=== PATIENT | male | born 1955 | race Caucasian/White ===

== ENCOUNTER → 2016-09-25 | Outpatient (CLI) | payer BC ==
[~2016-09-25] MED LIST: ALDACTONE PO; COREG3.125 MG PO; LASIX20 MG PO; MULTI-VITAMIN1 EAC1 PO; NO MEDICATIONS; POTASSIUM CHLO10 ME1 PO; PREDNISONE PO
== END | disposition home or self-care (01) ==
LOC: CECH 12:20
DX: I50.22 Chronic systolic (congestive) heart failure (principal); I51.7 Cardiomegaly
CPT/HCPCS: 93306

== ENCOUNTER → 2016-10-17 | Outpatient (CLI) | payer BC ==
[2016-10-17 13:05] LABS: BUN/CREATININE RATIO 24.44; CALCIUM SERUM 9.5 mg/dL (8.4-10.2); CREATININE SERUM 0.9 mg/dL (0.6-1.4); GLOM FILT RATE Estimated 93.2 mL/min (>60); MAGNESIUM 2.1 mg/dL (1.6-3.0); POTASSIUM 4.1 mmol/L (3.5-5.1)
== END | disposition home or self-care (01) ==
LOC: CLAB 12:11
DX: I50.22 Chronic systolic (congestive) heart failure (principal); Z87.898 Personal history of other specified conditions
CPT/HCPCS: 36415; 80048; 83735